=== PATIENT | female | born 1960 | race Caucasian/White ===

== ENCOUNTER 2021-05-16 10:00 | Emergency (ER) | payer OTHER ==
[~2021-05-16] VITALS: Ht 152.4 cm; Wt 52.2 kg
--- NOTE | 2021-05-16 10:08 | NUR ---
FROM HOME C/O SEVERE HEADACHE, CHEST PAIN THAT RADIATED TO HER LEFT ARM WITH WEAKNESS NAD FATIGUE SINCE LAST NIGHT. PT WAS ATTACHED TO MONITOR. BREATHING IS EVEN AND UNLABORED. WILL CONTINUE TO MONITOR.
--- NOTE | 2021-05-16 10:10 | NUR ---
IV LINE IS ESTABLISHED, BLOOD SPECIMEN COLLECTED AND SENT TO THE LAB
[2021-05-16] MEDS ORDERED: BENA5TAB5 PO (10:19)
[2021-05-16] MEDS ORDERED: METF-440 PO (10:19)
[2021-05-16] MEDS ORDERED: ATOR20TA PO (10:19)
[2021-05-16 10:45] LABS: BASOPHILS % (AUTO) 0.4 % (0.0-2.0); EOSINOPHILS % (AUTO) 0.9 % (0.0-6.0); HEMATOCRIT 42 % (33-45); HEMOGLOBIN 13.5 g/dL (11.5-14.8); LYMPHOCYTES % (AUTO) 35.6 % (20.0-44.0); MEAN CORPUSCULAR HGB CONC 33 g/dl (31.0-36.0); MEAN CORPUSCULAR VOLUME 86 fL (82-100); MONOCYTES # (AUTO) 0.4 K/uL (0.1-1.30); MONOCYTES % (AUTO) 6.7 % (2.0-12.0); NEUTROPHILS # (AUTO) 3.2 K/uL (1.8-8.9); NEUTROPHILS % (AUTO) 56.4 % (43.0-81.0); PLATELET COUNT (AUTO) 240 K/uL (150-450); RED BLOOD CELL COUNT(AUTO) 4.85 MIL/uL (4.0-5.2); WHITE BLOOD COUNT (AUTO) 5.7 K/uL (4.3-11.0)
--- NOTE | 2021-05-16 10:45 | NUR ---
MOVE SHEET SUBMITTED AND CALLED FOR TELE BED.
--- NOTE | 2021-05-16 10:48 | NUR ---
COVID TEST CLLECTED AND SENT
[2021-05-16 10:52] LABS: CALCIUM, SERUM 8.7 mg/dL (8.5-10.1); CARBON DIOXIDE 28 mmol/L (21-32); CHLORIDE 101 mmol/L (98-107); CREATININE 0.8 mg/dL (0.6-1.3); GLUCOSE 157 mg/dL (74-106); POTASSIUM 3.7 mmol/L (3.5-5.1); SODIUM SERUM 140 mmol/L (136-145); UREA NITROGEN, BLOOD 14 mg/dL (7-18)
--- NOTE | 2021-05-16 10:56 | NUR ---
PT TAKEN TO CT
--- NOTE | 2021-05-16 11:02 | NUR ---
PT BACK FROM CT
[2021-05-16 11:06] LABS: ALANINE AMINOTRANSFERASE 31 U/L (12-78); ALBUMIN 4.3 g/dL (3.4-5.0); ALKALINE PHOSPHATASE 76 U/L (46-116); ASPARTATE AMINOTRANSFERASE 21 U/L (15-37); BILIRUBIN,DIRECT 0.2 mg/dL (0.0-0.2); BILIRUBIN,TOTAL 0.7 mg/dL (0.2-1.0)
[2021-05-16] MEDS ORDERED: ASPIRIN 81 MG TAB.CHEW PO ONE (12:30)
--- NOTE | 2021-05-16 12:30 | NUR ---
ASPIRIN 162MG NOT ADMINISTERED DUE TO PATIENT REFUSAL DESPITE EXPLAINING RISKS AND BENEFITS.
--- NOTE | 2021-05-16 12:53 | NUR ---
The patient alert and oriented x4. Denies pain. In room air and denies SOB. Respiration regular and unlabored. Patient does not wish to proceed with medical care recommended by Dr. Godfrey. Patient given information related to possible complications, up to and including , which could occur as a result of leaving the hospital at this time. Patient verbalizes understanding of risks involved due to leaving against medical advice. Patient has signed AMA form. The patient is picked up by daughter
[2021-05-16 12:54] VITALS: BP 131/76
== END 2021-05-16 12:55 | disposition left against medical advice (07) ==
LOC: ER 10:07
DX: R07.9 Chest pain, unspecified (principal); Z20.822 Contact with and (suspected) exposure to COVID-19; Z83.3 Family history of diabetes mellitus; Z82.49 Family history of ischemic heart disease and other diseases of the circulatory system; R51.9 Headache, unspecified; E11.9 Type 2 diabetes mellitus without complications; I10 Essential (primary) hypertension; Z79.84 Long term (current) use of oral hypoglycemic drugs; Z79.899 Other long term (current) drug therapy
CPT/HCPCS: 36415; 70450; 71045; 80048; 80076; 83880; 84484; 85025; 87426; 93005; 99285; C9803

== ENCOUNTER 2021-05-21 21:28 | Inpatient (IN) | payer OTHER ==
[~2021-05-21] VITALS: Ht 152.4 cm; Wt 52.2 kg
[~2021-05-21 21:28] MED LIST: ATOR20TA PO; BENA5TAB5 PO; METF-440 PO
--- NOTE | 2021-05-21 21:35 | NUR ---
BIBFAMILY. L SIDE CP RADIATING TO L SHOULDER AND BACK OF HEAD 05/16/21 PRESSURE 01/31 AGGREVATED BY BENDING DOWN. DENIES TAKING MEDS FOR PAIN MARKETING TRAFFIC COORDINATOR. PT A/OX4. TOLERATING R/A WELL WITH NO SOB AT 100%. PT A/OX4. TOLERATING R/A WELL WITH NO SOB.
--- NOTE | 2021-05-21 22:08 | NUR ---
LAC #18G S/L; PATENT AND INTACT
--- NOTE | 2021-05-21 22:10 | NUR ---
BLOOD WORK COLLECTED SENT TO LAB
[2021-05-21] MEDS ORDERED: NITROGLYCERIN PACKET 1 GM PACKET ONE (22:19)
[2021-05-21] MEDS ORDERED: ACETAMINOPHEN ES 500 MG TABLET ONE (22:19)
[2021-05-21] MEDS ORDERED: ASPIRIN EC 81 MG TABLET.DR PO ONE (22:19)
--- NOTE | 2021-05-21 22:22 | NUR ---
BEATER TENDER AT PT'S BEDSIDE
[2021-05-21] MEDS ORDERED: NITROGLYCERIN PACKET 1 GM PACKET TD ONE (22:30)
[2021-05-21] MEDS ORDERED: ACETAMINOPHEN ES 500 MG TABLET PO ONE (22:30)
[2021-05-21] MEDS ORDERED: ASPIRIN 81 MG TAB.CHEW PO ONE (22:30)
[2021-05-21] MEDS ORDERED: LORAZEPAM 0.5 MG TABLET PO ONE (22:30)
--- NOTE | 2021-05-21 22:31 | NUR ---
COVID SWAB COLLECTED AND SENT TO LAB
[2021-05-21] MEDS ORDERED: LORAZEPAM 0.5 MG TABLET ONE (22:34)
[2021-05-21] MEDS ORDERED: IV NS 0.9% 500 ML BAG IV ONE (23:00)
[2021-05-21 23:01] LABS: BASOPHILS % (AUTO) 0.2 % (0.0-2.0); EOSINOPHILS % (AUTO) 0.7 % (0.0-6.0); HEMATOCRIT 41 % (33-45); HEMOGLOBIN 13.5 g/dL (11.5-14.8); LYMPHOCYTES # (AUTO) 2.6 K/uL (0.8-4.8); LYMPHOCYTES % (AUTO) 31.3 % (20.0-44.0); MEAN CORPUSCULAR HGB CONC 33 g/dl (31.0-36.0); MEAN CORPUSCULAR VOLUME 85 fL (82-100); MONOCYTES # (AUTO) 0.6 K/uL (0.1-1.30); MONOCYTES % (AUTO) 7.4 % (2.0-12.0); NEUTROPHILS # (AUTO) 5.1 K/uL (1.8-8.9); NEUTROPHILS % (AUTO) 60.4 % (43.0-81.0); PLATELET COUNT (AUTO) 248 K/uL (150-450); RED BLOOD CELL COUNT(AUTO) 4.85 MIL/uL (4.0-5.2); WHITE BLOOD COUNT (AUTO) 8.4 K/uL (4.3-11.0)
[2021-05-21 23:06] LABS: ALANINE AMINOTRANSFERASE 25 U/L (12-78); ALBUMIN 4.2 g/dL (3.4-5.0); ALKALINE PHOSPHATASE 75 U/L (46-116); ASPARTATE AMINOTRANSFERASE 16 U/L (15-37); BILIRUBIN,DIRECT 0.1 mg/dL (0.0-0.2); BILIRUBIN,TOTAL 0.4 mg/dL (0.2-1.0); CALCIUM, SERUM 9.2 mg/dL (8.5-10.1); CARBON DIOXIDE 27 mmol/L (21-32); CHLORIDE 102 mmol/L (98-107); CREATININE 0.9 mg/dL (0.6-1.3); GLUCOSE 104 mg/dL (74-106); POTASSIUM 3.6 mmol/L (3.5-5.1); SODIUM SERUM 141 mmol/L (136-145); TOTAL PROTEIN, SERUM 8.4 g/dL (6.4-8.2); UREA NITROGEN, BLOOD 16 mg/dL (7-18)
[2021-05-22] MEDS ORDERED: Z GUARD REMEDY 4 OZ OINT TP PRN (00:30)
[2021-05-22] MEDS ORDERED: MAGNESIUM HYDROXIDE 30 ML UDC PO PRN (00:30)
[2021-05-22] MEDS ORDERED: ZOLPIDEM TARTRATE 5 MG TABLET PO PRN (00:30)
[2021-05-22] MEDS ORDERED: ONDANSETRON HCL/PF 4 MG/2 ML VIAL IVP PRN (00:30)
[2021-05-22] MEDS ORDERED: MAG HYDROX/AL HYDROX/SIMETH 30 ML UDC PO PRN (00:30)
[2021-05-22] MEDS ORDERED: INSULIN REGULAR, HUMAN 100 UNIT/ML 3 ML VIAL SQ PRN (00:30)
[2021-05-22] MEDS ORDERED: DEXTROSE 50%-WATER 50 ML DISP.SYRIN IV PRN (00:30)
[2021-05-22] MEDS ORDERED: MORPHINE SULFATE INJ 2 MG/ML DISP.SYRIN IV PRN (01:00)
--- NOTE | 2021-05-22 02:01 | NUR ---
EPIC PANEL PAGED
[2021-05-22 06:56] LABS: BASOPHILS % (AUTO) 0.5 % (0.0-2.0); EOSINOPHILS % (AUTO) 0.5 % (0.0-6.0); HEMATOCRIT 39 % (33-45); HEMOGLOBIN 12.5 g/dL (11.5-14.8); LYMPHOCYTES # (AUTO) 1.2 K/uL (0.8-4.8); LYMPHOCYTES % (AUTO) 19.8 % (20.0-44.0); MEAN CORPUSCULAR HGB CONC 32 g/dl (31.0-36.0); MEAN CORPUSCULAR VOLUME 85 fL (82-100); MONOCYTES # (AUTO) 0.5 K/uL (0.1-1.30); MONOCYTES % (AUTO) 8.9 % (2.0-12.0); NEUTROPHILS # (AUTO) 4.2 K/uL (1.8-8.9); NEUTROPHILS % (AUTO) 70.3 % (43.0-81.0); PLATELET COUNT (AUTO) 206 K/uL (150-450); RED BLOOD CELL COUNT(AUTO) 4.53 MIL/uL (4.0-5.2)
[2021-05-22 07:22] LABS: ALBUMIN 3.6 g/dL (3.4-5.0); BILIRUBIN,TOTAL 0.6 mg/dL (0.2-1.0); CALCIUM, SERUM 8.3 mg/dL (8.5-10.1); CREATININE 0.7 mg/dL (0.6-1.3); MAGNESIUM 2.1 mg/dL (1.8-2.4); POTASSIUM 3.8 mmol/L (3.5-5.1); TOTAL PROTEIN, SERUM 7.2 g/dL (6.4-8.2)
--- NOTE | 2021-05-22 07:46 | NUR ---
GOT BED 310-2
[2021-05-22] MEDS ORDERED: NITROGLYCERIN PATCH 0.2 MG/HR PATCH.TD24 TD SCH (08:00)
--- NOTE | 2021-05-22 08:04 | NUR ---
VERN OVIEDO TO NURSE BELL
--- NOTE | 2021-05-22 08:45 | NUR ---
Patient arrived via gurney at 0845am from ER. Patient AO X 4, able to make needs known, can follow simple commands, no apparent distress noted, breathing even and unlabored. Admitting hospitalist made aware of the patient's arrival. Patient admitting diagnosis chest pain. Patient's vital signs within normal limits, no complained of facial numbness or weakness, no extremity numbness or weakness at this time. Skin intact, warm to touch, no pallor or cyanosis noted. Patient oriented with use of call lights, use of bed control, use of telephone and tv control, also introduces SWEEPER OPERATOR HIGHWAYS and RN assigned for today, verbalized understanding and gratitude. All belongings written in the inventory list. All needs attended, kept clean and dry, call light left within reach, safety precautions in place, brakes locked, side rails up X 2, will endorse to next shift for continuity of care.
--- NOTE | 2021-05-22 09:01 | NUR ---
THE PATIENT IS TRANSFERED TO ROOM 310-1 IN STABLE CONDITON AND PER ACLS POLICY
[2021-05-22 09:13] LABS: THYROID STIMULATING HORMONE 1.919 uIU/mL (0.358-3.74)
[2021-05-22 09:30] VITALS: BP 113/45
[2021-05-22] MEDS: ASPIRIN 81 MG TAB.CHEW PO SCH (09:37)
[2021-05-22] MEDS: PANTOPRAZOLE 40 MG TABLET.DR PO SCH (09:37)
[2021-05-22] MEDS: BENAZEPRIL HCL 10 MG TABLET PO SCH (09:38)
[2021-05-22] MEDS ORDERED: NITROGLYCERIN 0.4 MG/HR PATCH.TD24 TD SCH (11:31)
[2021-05-22 12:00] VITALS: BP 122/65
[2021-05-22] MEDS ORDERED: IOHEXOL-350 100 ML VIAL IV ONE (12:48)
[2021-05-22] MEDS ORDERED: NITROGLYCERIN 0.4 MG/TAB BOTTLE ONE (12:48)
[2021-05-22] MEDS ORDERED: CT SWABBABLE VALVE TRANS SET 1 EA INFUS.SET MC ONE (12:49)
[2021-05-22] MEDS ORDERED: IV NS 0.9% 250 ML IV ONE (12:49)
[2021-05-22] MEDS ORDERED: METOPROLOL TARTRATE INJ 5 MG/5 ML AMPUL ONE ×4 (12:49→13:32)
[2021-05-22] MEDS: BLOOD SUGAR DIAGNOSTIC 1 EACH STRIP IN SCH ×3 (12:58→22:01)
[2021-05-22] MEDS: METOPROLOL TARTRATE INJ 5 MG/5 ML AMPUL IVP PRN ×7 (13:05→13:35)
[2021-05-22] MEDS ORDERED: NITROGLYCERIN 0.4 MG/TAB BOTTLE SL ONE (13:30)
[2021-05-22 16:00] VITALS: BP 113/68
--- NOTE | 2021-05-22 16:30 | NUR ---
Patient arrived via gurney at 0845am from ER. Patient AO X 4, able to make needs known, can follow simple commands, no apparent distress noted, breathing even and unlabored. Admitting hospitalist made aware of the patient's arrival. Patient admitting diagnosis chest pain. Patient's vital signs within normal limits, no complained of facial numbness or weakness, no extremity numbness or weakness at this time. Skin intact, warm to touch, no pallor or cyanosis noted. Patient oriented with use of call lights, use of bed control, use of telephone and tv control, also introduces DENTAL PRACTICE MANAGER and RN assigned for today, verbalized understanding and gratitude. All belongings written in the inventory list. All needs attended, kept clean and dry, call light left within reach, safety precautions in place, brakes locked, side rails up X 2, will endorse to next shift for continuity of care. Addendum: 05/22/21 at 1633 by DEVYN MORRIS RN WRONG CHART
[2021-05-22] MEDS: ACETAMINOPHEN 325 MG TABLET PO PRN (16:43)
--- NOTE | 2021-05-22 18:23 | NUR ---
RN CLOSING NOTES Patient lying in bed, no SOB, respirations even and unlabored, no apparent distress noted, denies any pain or discomfort. All due medications given per MD order, tolerating well. No s/s of hypo or hyperglycemia, no tremors, no change in level of consciousness. All needs attended, kept clean and dry, call light left within reach, safety precautions in place, frequent visual check rendered, brakes locked, side rails up X 2, will endorse to next shift for continuity of care.
--- NOTE | 2021-05-22 19:40 | NUR ---
MS RN OPENING NOTES RECEIVED PATIENT AWAKE IN BED. A/O X4, TAM[place] SPEAKING. PATIENT STABLE ON ROOM AIR. NO SOB OR S/S OF RESPIRATORY DISTRESS. ON EXTERNAL MIS DIRECTOR READING SR @ 90 BPM. IV ACCESS LAC 18 GAUGE SALINE LOCKED, INTACT AND PATENT. SAFETY PRECAUTIONS IN PLACE. BED IN LOWEST LOCKED POSITION, HOB ELEVATED, SIDE RAILS UP X2, AND CALL LIGHT AND TABLE WITHIN REACH. WILL CONTINUE WITH PLAN OF CARE.
[2021-05-22 20:00] VITALS: BP 98/56
[2021-05-22] MEDS ORDERED: ATORVASTATIN 10 MG TABLET PO SCH ×2 (22:00)
[2021-05-23] VITALS: BP 96/58
[2021-05-23 04:00] VITALS: BP 105/58
[2021-05-23] MEDS: BLOOD SUGAR DIAGNOSTIC 1 EACH STRIP IN SCH (06:32)
--- NOTE | 2021-05-23 06:42 | NUR ---
SALES REPRESENTATIVES CLOSING NOTES PATIENT AWAKE IN BED. A/O X4, [place]IZ[place] SPEAKING. PATIENT STABLE ON ROOM AIR. NO SOB OR S/S OF RESPIRATORY DISTRESS. ON EXTERNAL TERRITORY SERVICE REPRESENTATIVE READING SR @ 92 BPM. IV ACCESS LAC 18 GAUGE SALINE LOCKED, INTACT AND PATENT. ALL NEEDS MET AT THIS TIME. SAFETY PRECAUTIONS IN PLACE AT ALL TIMES. BED IN LOWEST LOCKED POSITION, HOB ELEVATED, SIDE RAILS UP X2, AND CALL LIGHT AND TABLE WITHIN REACH. WILL ENDORSE TO ONCOMING NURSE FOR NORBERTO.
[2021-05-23 07:17] LABS: CALCIUM, SERUM 8.9 mg/dL (8.5-10.1); CREATININE 0.8 mg/dL (0.6-1.3); POTASSIUM 4.2 mmol/L (3.5-5.1)
--- NOTE | 2021-05-23 07:38 | NUR ---
MACHINE TOOL MECHANIC OPENING NOTES RECEIVED PATIENT IN BED, AWAKE, A/O X4, [place] SPEAKING. PATIENT ON ROOM AIR; BREATHING EVEN AND UNLABORED, NO SOB NOTED.COMPLAINING OF HEADACHE. TELE MONITOR WITH A CURRENT READING OF SR 74. IV ACCESS ON LAC G # 18 PRESENT AND INTACT; SL. SAFETY PRECAUTIONS IN PLACE; BED IN LOW POSITION AND LOCKED, RAILS UP X2, CALL LIGHT WITHIN REACH. WILL CONTINUE TO MONITOR PATIENT.
[2021-05-23] MEDS: ASPIRIN 81 MG TAB.CHEW PO SCH (08:03)
[2021-05-23] MEDS: ACETAMINOPHEN 325 MG TABLET PO PRN (08:03)
[2021-05-23] MEDS: PANTOPRAZOLE 40 MG TABLET.DR PO SCH (08:03)
[2021-05-23] MEDS: BENAZEPRIL HCL 10 MG TABLET PO SCH (08:05)
[2021-05-23 08:27] VITALS: BP 113/65
[2021-05-23] MEDS ORDERED: BENAZEPRIL HCL 5 MG TABLET PO SCH (09:00)
--- NOTE | 2021-05-23 10:31 | NUR ---
SENIOR POLICY ASSOCIATECLINICAL PHARMACY COORDINATOR NOTES PATIENT DISCHARGED HOME IN MEDICALLY STABLE CONDITION. PATIENT IS A/O X4 ABLE TO MAKE NEEDS KNOW. ALL DISCHARGE PAPERWORK PREPARED AND DISCHARGE PHYSICIAN INSTRUCTIONS PROVIDED TO PATIENT; PATIENT VERBALIZED UNDERSTANDING. DISCHARGE FORM SIGNED. PATIENT HAD NO BELONGINGS. NO PICTURES. IV ACCESS REMOVED PRIOR PATIENT LEAVING THE ROOM. WRISTBAND REMOVED WELL. PATIENT LEFT THE UNIT ACCOMPANIED BY HER DAUGHTER. PATIENT LEFT THE HOSPITAL IN A PRIVATE CAR.
== END 2021-05-23 10:49 | disposition home or self-care (01) | DRG 303 ==
LOC: ER 21:29 → TRANSITION 05-22 05:07 → TELE 05-22 08:11
PROVIDERS: ADMIT Nurse Practitioner Acute Care; ATTEND Nurse Practitioner Acute Care
DX: I25.10 Atherosclerotic heart disease of native coronary artery without angina pectoris (principal); E78.5 Hyperlipidemia, unspecified; E11.9 Type 2 diabetes mellitus without complications; E78.00 Pure hypercholesterolemia, unspecified; I10 Essential (primary) hypertension; Z79.84 Long term (current) use of oral hypoglycemic drugs; Z79.899 Other long term (current) drug therapy; Z88.8 Allergy status to other drugs, medicaments and biological substances
CPT/HCPCS: 36415; 71045-TC; 75574; 80048-TC; 80053-TC; 80061-TC; 80076-TC; 82962-TC; 83735-TC; 83880; 84100-TC; 84443-TC; 84484-TC; 85025-TC; 85378-TC; 87081-TC; 93307-TC; C9803; G0378; J1815; J2405; J3490; J7040; J7050; Q9967

== ENCOUNTER 2023-03-31 12:49 | Emergency (ER) | payer OTHER ==
[~2023-03-31] VITALS: Ht 149.9 cm; Wt 52.6 kg
[~2023-03-31 12:49] MED LIST changes: -METF-440 PO
[2023-03-31] MEDS ORDERED: ONDANSETRON HCL/PF 4 MG/2 ML VIAL IV ONE (13:30)
[2023-03-31] MEDS ORDERED: MORPHINE SULFATE INJ 2 MG/ML DISP.SYRIN IV ONE (13:30)
[2023-03-31] MEDS ORDERED: ONDANSETRON HCL/PF 4 MG/2 ML VIAL ONE (13:31)
[2023-03-31] MEDS ORDERED: MORPHINE SULFATE INJ 4 MG/ML DISP.SYRIN ONE (13:32)
[2023-03-31] MEDS ORDERED: PROPOFOL 20 ML IV ONE (13:44)
[2023-03-31] MEDS ORDERED: FENTANYL PF 100MCG/2ML AMPUL ONE (14:33)
[2023-03-31] MEDS ORDERED: PROPOFOL 1,000 MG/100 ML BOTTLE IV ONE (15:00)
[2023-03-31] MEDS ORDERED: FENTANYL PF 100MCG/2ML AMPUL IV ONE (15:00)
[2023-03-31] MEDS ORDERED: IBUP-1955 PO (15:37)
[2023-03-31 16:06] VITALS: BP 122/72; TEMP 98.3; O2SAT 100
== END 2023-03-31 16:08 | disposition home or self-care (01) ==
LOC: ER 12:51
DX: S43.015A Anterior dislocation of left humerus, initial encounter (principal); S09.90XA Unspecified injury of head, initial encounter; I10 Essential (primary) hypertension; E78.5 Hyperlipidemia, unspecified; E11.9 Type 2 diabetes mellitus without complications; Z88.8 Allergy status to other drugs, medicaments and biological substances; W01.0XXA Fall on same level from slipping, tripping and stumbling without subsequent striking against object, initial encounter; Y93.89 Activity, other specified; Y92.89 Other specified places as the place of occurrence of the external cause; Y99.8 Other external cause status
CPT/HCPCS: 99285; 23650; 96374; 70450; 96375; 99152; 73080; 73090; 73060; 73030; 73020; J2704; J3010; J2270; J2405; J7030; G0500